=== PATIENT | male | born 1970 | race Caucasian/White ===

== ENCOUNTER → 2020-05-20 17:01 | Outpatient (BNVA) | payer SELFPAY | PROVIDERS: Visit Provider Nurse Practitioner | DX: E11.65 Type 2 diabetes mellitus with hyperglycemia (principal); I10 Essential (primary) hypertension; Z79.899 Other long term (current) drug therapy | CPT/HCPCS: 80053; 83036 ==

== ENCOUNTER → 2020-08-11 00:01 | Outpatient (BNVA) | payer SELFPAY | PROVIDERS: Visit Provider Nurse Practitioner | DX: E11.65 Type 2 diabetes mellitus with hyperglycemia (principal); E78.5 Hyperlipidemia, unspecified; I10 Essential (primary) hypertension | CPT/HCPCS: 80053; 80061; 83036 ==

== ENCOUNTER → 2020-10-06 16:34 | Outpatient (BNVA) | payer OTHER, SELFPAY | PROVIDERS: Visit Provider Nurse Practitioner Family | DX: Z20.828 Contact with and (suspected) exposure to other viral communicable diseases (principal) | CPT/HCPCS: 87635 ==

== ENCOUNTER → 2020-12-04 08:34 | Outpatient (BNVA) | payer SELFPAY | PROVIDERS: PCP Nurse Practitioner; Visit Provider Nurse Practitioner | DX: E11.65 Type 2 diabetes mellitus with hyperglycemia (principal); E78.5 Hyperlipidemia, unspecified; I10 Essential (primary) hypertension | CPT/HCPCS: 80053; 83036; 85025 ==

== ENCOUNTER → 2021-07-21 10:56 | Outpatient (BNVA) | payer SELFPAY | PROVIDERS: PCP Nurse Practitioner; Visit Provider Dermatology | DX: Z01.89 Encounter for other specified special examinations (principal) ==

== ENCOUNTER → 2021-10-13 10:01 | Outpatient (BNVA) | payer SELFPAY | PROVIDERS: PCP Nurse Practitioner; Visit Provider Dermatology | DX: Z01.89 Encounter for other specified special examinations (principal) ==

== ENCOUNTER → 2022-04-13 10:05 | Outpatient (BNVA) | payer SELFPAY | PROVIDERS: PCP Nurse Practitioner; Visit Provider Dermatology | DX: Z01.89 Encounter for other specified special examinations (principal) | CPT/HCPCS: 83721 ==

== ENCOUNTER 2022-09-06 13:34 | Emergency (ER) | payer MEDICAID, SELFPAY ==
[2022-09-06 13:36] VITALS: BP 125/92; PULSE 90; RESP 18; TEMP 36.6; O2SAT 95; BMI 40.3
--- NOTE | 2022-09-06 14:05 | PC.PHAR ---
pt states he takes care of his own medications-pt states he was taking vitamin d3 otc states he cant remember the units but states he hasnt been taking for 3 weeks or a month
--- NOTE | 2022-09-06 14:08 | CTR_ITS ---
PROCEDURE INFORMATION: Exam: CT Abdomen And Pelvis With Contrast Exam date and time: 09/06/2022 2:17 PM Age: 52 years old Clinical indication: Pain and injury or trauma; Fall; Blunt; Generalized; Abdominal pain; Additional info: Abd pain/trauma TECHNIQUE: Imaging protocol: Computed tomography of the abdomen and pelvis with contrast. Radiation optimization: All CT scans at this facility use at least one of these dose optimization techniques: automated exposure control; mA and/or kV adjustment per patient size (includes targeted exams where dose is matched to clinical indication); or iterative reconstruction. Contrast material: OMNI 350; Contrast volume: 100 ml; Contrast route: INTRAVENOUS (IV); COMPARISON: No relevant prior studies available. RADIATION DOSE METRICS: Total DLP (mGy-cm): 1201.63 FINDINGS: Liver: Normal. No mass. Gallbladder and bile ducts: Normal. No calcified stones. No ductal dilation. Pancreas: Normal. No ductal dilation. Spleen: Normal. No splenomegaly. Adrenal glands: Normal. No mass. Kidneys and ureters: Multiple right renal simple cysts with the largest measuring > 1.0 cm . Left renal hypodensity measuring < 1.0 cm , too small to further characterize. Stomach and bowel: Mild colonic diverticulosis. Appendix: Normal appendix. Intraperitoneal space: Unremarkable. No free air. No significant fluid collection. Vasculature: Calcification of the abdominal aorta and/or iliac arteries consistent with atherosclerotic vessel disease. Lymph nodes: Unremarkable. No enlarged lymph nodes. Urinary bladder: Unremarkable as visualized. Reproductive: Nonspecific prostate calcifications. Bones/joints: Unremarkable. No acute fracture. Soft tissues: Unremarkable. CT/CT abdomen pelvis w con* [id number] IMPRESSION: No acute findings. COMMENTS: Consistent with the [employer]'s Incidental Findings Committee white paper (J Am Lindsey Radiol 2018): Any incidental renal lesion less than 1 cm or classified as too small to characterize, or any incidental cystic renal lesion characterized as simple-appearing, is likely benign. No follow-up imaging is recommended for these lesions per consensus recommendations based on imaging criteria.
[2022-09-06 14:12] LABS: Basophils % 0.4 %; Eosinophils # 0.2 10^3/uL (0.0-0.8); Eosinophils % 2.1 %; Hematocrit 40.3 % (42.0-52.0); Hemoglobin 13.2 g/dL (11.7-16.6); Lymphocytes % 20.8 %; Mean Corpuscular HGB Conc 32.8 g/dL (30.0-36.0); Mean Corpuscular Hemoglobin 29.5 pg (28.0-34.0); Mean Platelet Volume 10.2 fL (7.4-10.4); Monocytes # 0.6 10^3/uL (0.2-0.9); Neutrophils # 6.81 10^3/uL (1.8-7.7); Neutrophils % 70.1 %; Nucleated Red Blood Cells % 0 %; Platelet Count 223 10^3/cmm (130-400); Red Blood Count 4.48 10^6/uL (4.1-5.3); Red Cell Distribution Width 13.1 % (12.1-15.1); White Blood Count 9.7 10^3/uL (4.0-10.0)
--- NOTE | 2022-09-06 14:18 | W.ED.FALL ---
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 He has some bruising and tenderness there he denies striking his head or his neck is no other injury or pain he has not had any loss of consciousness no vomiting he is not on any anticoagulants. MD complaint: fall Onset (ago): minute(s) Fall from: standing Fall witnessed: yes, by bystander Place fall occurred: work Loss of consciousness: None Prolonged down time: no Symptoms prior to fall: none Context: tripped/slipped Location of injury: abdomen (Right lower flank) Associated symptoms-after fall: Reports abdominal pain; Denies chest pain, confusion, difficulty walking, headache(s), hematuria, lightheadedness, neck pain, numbness, short of breath, vertigo or weakness Review of Systems Const: Denies: fever(s), chills, body aches, change in appetite, fatigue or malaise ENMT: Denies: throat pain, ear or mastoid pain, nasal discharge or nasal congestion Card: Denies: chest pain or lightheadedness Resp: Denies: dyspnea, productive cough or non-productive cough GI: Reports: abdominal pain; Denies: nausea or vomiting : Denies: hematuria Musc: Denies: neck pain Skin/Breast: Denies: rash or pruritus Neuro: Denies: headache(s), difficulty walking, vertigo or confusion [facility] ED PFSH: Medical History (Updated 09/06/22 @ 14:59 by Gabo Braxton DO) Hyperlipidemia, unspecified Hypertension Obesity Type 2 diabetes mellitus with hyperglycemia Surgical History No history of previous surgery Family History Father Diabetes Other Heart disease Social History Smoking and tobacco status: never smoked Second hand smoke exposure: No Smoking risk assessment/counseling performed?: No Alcohol intake: current Alcohol intake frequency: holidays/special occasions only Desire information about alcohol rehabilitation?: No Counseling given: No Desire information about substance/drug rehabilitation?: No Counseling given: No Adopted: No Caregiver/support person: No Lives independently: Yes Household members: none Housing: House Marital status: Single Number of children: 0 Number of grandchildren: 0 service: No Current occupational status: employed Pets and animals: No History of recent travel: No Current gender identity: Male Physical Exam Const: COMMON NORMALS: no acute distress GENERAL APPEARANCE: cooperative and comfortable ORIENTATION/CONSCIOUSNESS: Yes awake, Yes oriented to person, Yes oriented to place and Yes oriented to time HENMT: COMMON NORMALS: normocephalic, atraumatic, hearing grossly normal bilaterally, external ears normal, EAC's normal, TM's normal bilaterally, Normal nasal mucous membranes and turbinates present, moist oral mucous membranes and oropharynx normal HEAD & SCALP: normocephalic and atraumatic NOSE: Normal nasal mucous membranes and turbinates present EXTERNAL EAR: Yes external ears normal EXTERNAL AUDITORY CANAL: EAC's normal TYMPANIC MEMBRANE: TM's normal bilaterally Eye: COMMON NORMALS: Equal, round and reactive pupils present, EOMs intact bilaterally, conjunctivae normal and no scleral icterus CONJUNCTIVA: Yes conjunctivae normal PUPIL: Yes Equal, round and reactive pupils present Neck/C-Spine: COMMON NORMALS: full ROM, no lymphadenopathy, supple and no JVD Resp: COMMON NORMALS: normal respiratory effort, No retractions, No use of accessory muscles and clear to auscultation bilaterally AUSCULTATION: clear to auscultation bilaterally Cardio: COMMON NORMALS: no JVD, regular rate, regular rhythm and No murmurs present (Cardio) RATE: regular rate RHYTHM: regular rhythm GI: COMMON NORMALS: No hepatosplenomegaly present AUSCULTATION: Yes normoactive bowel sounds PALPATION: Yes Tenderness to palpation present (GI) (Right lower flank), No Guarding due to palpation present (GI) and Yes No hepatosplenomegaly present : COMMON NORMALS: Yes no CVA tenderness BLADDER/KIDNEY EXAM: Yes no CVA tenderness Back/Pelvis: COMMON NORMALS: no CVA tenderness Extremity: COMMON NORMALS: normal to inspection, capillary refill normal, no clubbing, cyanosis or edema, no calf tenderness and no pedal edema Neuro: SENSORIUM/ORIENTATION: Yes oriented to person, Yes oriented to place and Yes oriented to time Skin: COMMON NORMALS: no rashes or lesions noted GENERAL SKIN EXAM: no rashes or lesions noted Course Vital Signs: Vital signs: Vital Signs Temperature 97.8 F 09/06/22 13:36 Pulse Rate 90 09/06/22 13:36 Respiratory Rate 18 09/06/22 13:36 Blood Pressure 125/92 09/06/22 13:36 Pulse Oximetry 95 09/06/22 13:36 Oxygen Delivery Me thod 09/06/22 13:36 MDM - Fall Medical Decision Making Labs and imaging reviewed with the patient no acute findings noted discharge patient home use diclofenac as needed apply cold to the area of injury as needed follow-up with primary care doctor any worsening problems. Medical Records I reviewed the patient's medical records. Lab Data I reviewed the patient's lab results. : 09/06/22 14:05 09/06/22 14:05 Radiology Impressions Abdomen/Pelvis CT 09/06/22 14:08 IMPRESSION: No acute findings. COMMENTS: Consistent with the [place]'s Incidental Findings Committee white paper (J Am Lindsey Radiol 2018): Any incidental renal lesion less than 1 cm or classified as too small to characterize, or any incidental cystic renal lesion characterized as simple-appearing, is likely benign. No follow-up imaging is recommended for these lesions per consensus recommendations based on imaging criteria. Laboratory Results WBC 9.7 10^3/uL (4.0-10.0) 09/06/22 14:05 RBC 4.48 10^6/uL (4.1-5.3) 09/06/22 14:05 Hgb 13.2 g/dL (11.7-16.6) 09/06/22 14:05 Hct 40.3 % (42.0-52.0) L 09/06/22 14:05 MCV 90.0 fl (80-94) 09/06/22 14:05 MCH 29.5 pg (28.0-34.0) 09/06/22 14:05 MCHC 32.8 g/dL (30.0-36.0) 09/06/22 14:05 RDW 13.1 % (12.1-15.1) 09/06/22 14:05 Plt Count 223 10^3/cmm (130-400) 09/06/22 14:05 MPV 10.2 fL (7.4-10.4) 09/06/22 14:05 Neut % (Auto) 70.1 % 09/06/22 14:05 Lymph % (Auto) 20.8 % 09/06/22 14:05 [place] % (Auto) 6.0 % 09/06/22 14:05 Eos % (Auto) 2.1 % 09/06/22 14:05 Baso % (Auto) 0.4 % 09/06/22 14:05 Neut # (Auto) 6.81 10^3/uL (1.8-7.7) 09/06/22 14:05 Lymph # (Auto) 2.0 10^3/uL (0.8-4.8) 09/06/22 14:05 [place] # (Auto) 0.6 10^3/uL (0.2-0.9) 09/06/22 14:05 Eos # (Auto) 0.2 10^3/uL (0.0-0.8) 09/06/22 14:05 Baso # (Auto) 0.0 10^3/uL (0.0-0.1) 09/06/22 14:05 Nucleated RBC % (auto) 0 % 09/06/22 14:05 Nucleated RBCs # 0.0 /100WBC 09/06/22 14:05 Sodium 139 mmol/L (136-145) 09/06/22 14:05 Potassium 3.3 mmol/L (3.5-5.1) L 09/06/22 14:05 Chloride 108 mmol/L (98-107) H 09/06/22 14:05 Carbon Dioxide 22 mmol/L (22-29) 09/06/22 14:05 Anion Gap 12.3 (5-19) 09/06/22 14:05 BUN 10 mg/dL (6-20) 09/06/22 14:05 Creatinine 0.6 mg/dL (0.7-1.2) L 09/06/22 14:05 GFR Calculation 140.9 mL/min (90-130) H 09/06/22 14:05 Glucose 111 mg/dL (65-115) 09/06/22 14:05 Calculated Osmolality 288 mOsm/kg (285-295) 09/06/22 14:05 Calcium 8.0 mg/dL (8.5-10.5) L 09/06/22 14:05 Total Bilirubin 0.4 mg/dL (0.15-1.2) 09/06/22 14:05 AST 27 U/L (0-40) 09/06/22 14:05 ALT 35 U/L (0-41) 09/06/22 14:05 Alkaline Phosphatase 63 U/L (40-130) 09/06/22 14:05 Total Protein 6.1 g/dL (6.6-8.7) L 09/06/22 14:05 Albumin 3.5 g/dL (3.5-5.2) 09/06/22 14:05 Globulin 2.6 g/dL (1.3-4.6) 09/06/22 14:05 Discharge Plan Discharge Patient Disposition: Home Clinical Impression: Fall, Acute flank pain Condition: Stable Prescriptions: New diclofenac sodium 75 mg tablet,delayed release (DR/EC) 75 mg PO Q12H PRN (Reason: pain) Qty: 20 0RF No Action (DME) pen needle, diabetic 33 gauge x 5/32 needle See Rx Instructions .ROUTE .MEDSUPPLY Qty: 100 5RF Rx Instructions: 1 time day metformin 500 mg tablet extended release 24 hr 1,000 mg PO BID Qty: 120 2RF Flonase 50 mcg/actuation [place],Suspension 2 spray INTRANASAL DAILY PRN (Reason: Allergy Symptoms) Rx Instructions: administer into each nostril lovastatin 10 mg tablet 10 mg PO QAM Cozaar 100 mg tablet 100 mg PO QAM Jardiance 10 mg tablet 10 mg PO QAM Rx Instructions: 340B Discharge Orders: Discharge ED (Routine); Ordered 09/06/22 Ordered By: Gabo Braxton Referrals: Sally Houston, [employer] REPRESENTATIVE-C [Primary Care Provider] - Discharge Diet: Usual diet Discharge Activity: Increase activity as tolerated Patient Instructions: Opioid Safety, Pain Management Coding Level of Care Code ED Application Penetration Tester for Malik Fwd Exam Comprehensive
[2022-09-06] MEDS: iohexol 350 mg/mL 500 mL Btl (per mL) IV (14:21)
[2022-09-06 14:39] LABS: Alanine Aminotransferase 35 U/L (0-41); Albumin Level 3.5 g/dL (3.5-5.2); Alkaline Phosphatase 63 U/L (40-130); Anion Gap 12.3 (5-19); Aspartate Amino Transferase 27 U/L (0-40); Blood Urea Nitrogen 10 mg/dL (6-20); Carbon Dioxide 22 mmol/L (22-29); Chloride 108 mmol/L (98-107); Globulin 2.6 g/dL (1.3-4.6); Glomerular Filtration Rate 140.9 mL/min (90-130); Glucose 111 mg/dL (65-115); Osmolality Calculated 288 mOsm/kg (285-295); Potassium 3.3 mmol/L (3.5-5.1); Sodium 139 mmol/L (136-145); Total Bilirubin 0.4 mg/dL (0.15-1.2); Total Protein 6.1 g/dL (6.6-8.7)
[2022-09-06 15:00] VITALS: BP 120/89; PULSE 90; RESP 14; O2SAT 97
== END 2022-09-06 15:10 | disposition home or self-care (01) ==
PROVIDERS: Emergency Provider Family Medicine; PCP Nurse Practitioner
DX: R10.9 Unspecified abdominal pain (principal); S39.91XA Unspecified injury of abdomen, initial encounter; W13.3XXA Fall through floor, initial encounter
CPT/HCPCS: 74177; 80053; 85025; 99285; Q9967

== ENCOUNTER 2023-02-21 14:11 | Emergency (ER) | payer MEDICAID, SELFPAY ==
--- NOTE | 2023-02-21 14:26 | ECG_ITS ---
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 Measurements Intervals [place] Rate: 116 P: 46 MI: 160 QRS: 88 QRSD: 93 T: 32 QT: 338 QTc: 470 Interpretive Statements SINUS TACHYCARDIA No previous ECG available for comparison Electronically Signed On 02-22-2023 10:11:36 CDT by Maynor Carrera M.D. [email or web address]/store/[id number] f
--- NOTE | 2023-02-21 14:29 | XR_ITS ---
WS: [id number] Exam: XR chest 1V portable [id number] Date/Time of Exam: 02/21/2023 2:31 PM Reason For Exam: cp No priors. The lungs are clear and fully expanded. Normal cardiomediastinal silhouette. Bony structures are inta ct. Monitoring leads superimpose the chest. XR/XR chest 1V portable [id number] IMPRESSION: 1. No acute cardiopulmonary finding.
[2023-02-21 14:47] VITALS: BP 110/87; PULSE 115; RESP 18; TEMP 37.3; O2SAT 96
--- NOTE | 2023-02-21 14:51 | PC.NURSE ---
PT PLACED ON CONTINUOUS SPO2, NIBP, AND CM.
--- NOTE | 2023-02-21 14:57 | CT_ITS ---
WS: [id number] CT HEAD TECHNIQUE: Noncontrast CT of the head obtained from the skullbase to the vertex. CLINICAL INFORMATION: dizziness COMPARISON: None. DLP: 1215.[address] scans at [facility] use at least one of these dose optimization techniques: automated e xposure control; mA and/or kV adjustment per patient size (includes targeted exams where dose is matc hed to clinical indication); or iterative reconstruction. FINDINGS: No evidence of intracranial hemorrhage or mass effect. Ventricular system and basal cisterns are yang nt. Mild small vessel changes with mild parenchymal volume loss. No extra-axial fluid collections. No evidence of mass or mass effect. Paranasal sinuses and mastoid air cells are well aerated. .Normal visualized soft tissues. CT/CT head wo con* [id number] IMPRESSION: 1. No evidence of intracranial hemorrhage or mass effect. 2. Mild small vessel changes. Mild parenchymal volume loss. 3. No acute intracranial findings.
[2023-02-21 15:11] LABS: Basophils # 0.1 10^3/uL (0.0-0.1); Basophils % 0.5 %; Eosinophils # 0.1 10^3/uL (0.0-0.8); Eosinophils % 0.7 %; Hematocrit 45.7 % (42.0-52.0); Hemoglobin 15.4 g/dL (11.7-16.6); Lymphocytes # 1.9 10^3/uL (0.8-4.8); Lymphocytes % 14.5 %; Mean Corpuscular HGB Conc 33.7 g/dL (30.0-36.0); Mean Corpuscular Hemoglobin 29.8 pg (28.0-34.0); Mean Corpuscular Volume 88.4 fl (80-94); Mean Platelet Volume 9.7 fL (7.4-10.4); Monocytes # 0.7 10^3/uL (0.2-0.9); Monocytes % 5.2 %; Neutrophils % 77.9 %; Nucleated Red Blood Cells % 0 %; Platelet Count 345 10^3/cmm (130-400); Red Blood Count 5.17 10^6/uL (4.1-5.3); Red Cell Distribution Width 13.1 % (12.1-15.1)
--- NOTE | 2023-02-21 15:26 | ED_ITS ---
HPI - Chest Pain General: Chief Complaint: Chest Pain Stated Complaint: CHEST TIGHTNESS RADIATING TO R ARM Time Seen by Provider: 02/21/23 14:17 Source: patient History of Present Illness: 52-year-old male with a history of hypertension but no prior history of coronary disease or other heart disease. He is a dedicated truck driver. He began to get lightheaded while standing in a business in [place] earlier in the afternoon. He thought his sugar was getting low, and ate a couple of cookies which seem to improve his symptoms transiently. Following this, he began to develop some tightness in his chest, tingling and numbness in his extremities and continued lightheadedness. He had transient problems with language, and could answer questions with 1-2 word answers. He felt like he was having trouble concentrating. This seemed to persist for quite some time. Symptoms are improved now. He still has some paresthesias to all extremities. His chest is mildly tight MD complaint: chest pain Pertinent past history: other Onset (ago): hour(s) Timing of current episode: constant and now resolved (nearly) Pain location: substernal Pain radiation: none Quality: tightness and aching Relieving factors: nothing Exacerbating factors: nothing Associated symptoms: Reports diaphoresis, dyspnea and nausea; Deny abdominal pain, fever(s), leg edema, syncope or vomiting Treatment prior to arrival: none Review of Systems Const: Reports: diaphoresis; Denies: fever(s) Eyes: Reports: change in vision (Transient blurriness) ENMT: Denies: throat pain Card: Reports: chest pain; Denies: irregular heart rhythm or syncope Resp: Reports: dyspnea GI: Reports: nausea; Denies: abdominal pain or vomiting Neuro: Reports: dizziness and confusion (Potentially); Denies: headache(s) [facility] ED PFSH: Medical History (Updated 02/21/23 @ 18:10 by Rahul Cartagena DO) Hyperlipidemia, unspecified Hypertension Obesity Type 2 diabetes mellitus with hyperglycemia Surgical History No history of previous surgery Family History Father Diabetes Other Heart disease Social History Smoking and tobacco status: never smoked Second hand smoke exposure: No Smoking risk assessment/counseling performed?: No Alcohol intake: current Alcohol intake frequency: holidays/special occasions only Desire information about alcohol rehabilitation?: No Counseling given: No Substance/Drug Use: never Desire information about substance/drug rehabilitation?: No Counseling given: No Adopted: No Caregiver/support person: No Lives independently: Yes Household members: none Housing: House Marital status: Single Number of children: 0 Number of grandchildren: 0 service: No Current occupational status: employed Pets and animals: No Do you think of yourself as: Straight/Heterosexual Current gender identity: Male Physical Exam Const: COMMON NORMALS: no acute distress GENERAL APPEARANCE: cooperative; not ill appearing and not frail appearing HENMT: COMMON NORMALS: normocephalic, atraumatic and Normal external nose p resent HEAD & SCALP: normocephalic and atraumatic FACE & SINUS: normal facial exam and face symmetric NOSE: Normal external nose present Eye: COMMON NORMALS: Equal, round and reactive pupils present and EOMs intact bilaterally PUPIL: Yes Equal, round and reactive pupils present Neck/C-Spine: GENERAL: Yes trachea midline Chest: CHEST: Yes Symmetrical chest wall rise Resp: COMMON NORMALS: normal respiratory effort, No retractions, No use of accessory muscles and clear to auscultation bilaterally AUSCULTATION: clear to auscultation bilaterally Cardio: COMMON NORMALS: regular rhythm RATE: tachycardic RHYTHM: regular rhythm GI: COMMON NORMALS: Normal to inspection, nondistended, normoactive bowel sounds present Extremity: COMMON NORMALS: no pedal edema Neuro: DORINA COMA SCALE: document GCS findings [place] coma scale eye opening: Spontaneous [place] coma scale verbal response: Orientated [place] coma scale motor response: Obey commands [place] coma scale total score: 15 SENSORY EXAM: Yes extremities (intact) Psych: COMMON NORMALS: speech normal SPEECH: Yes normal speech Skin: COMMON NORMALS: no rashes or lesions noted GENERAL SKIN EXAM: no rashes or lesions noted Course Vital Signs: Vital signs: Vital Signs Temperature 99.1 F 02/21/23 14:47 Pulse Rate 84 02/21/23 19:15 Respiratory Rate 20 H 02/21/23 19:15 Blood Pressure 118/66 02/21/23 19:15 Pulse Oximetry 97 02/21/23 19:15 Oxygen Delivery Me thod Room Air 02/21/23 14:47 MDM - Chest Pain Medical Decision Making Patient is feeling improved after IV fluids, and rest. His NIH stroke scale is a negative. He was mildly tachycardic initially, but heart rate has returned to normal after one liter. EKG initially showed sinus tachycardia with no acute St change. white blood cell count is 13. Bicarbonate level is 21. BMP is otherwise not remarkable. Chest X-ray is negative. Head CT is non acute. TSH is normal. delta troponin is normal. Give an improvement in his symptoms, and negative workout both for cardiac ideology and stroke, the patient will be allowed at home. Close outpatient follow up. Further outpatient workup may be needed. He was encouraged to rest for 48 hours, and to not drive a truck until cleared by his doctor. Lab Data 02/21/23 14:43 02/21/23 14:43 Radiology Impressions Chest X-Ray 02/21/23 14:29 IMPRESSION: 1. No acute cardiopulmonary finding. Head CT 02/21/23 14:57 IMPRESSION: 1. No evidence of intracranial hemorrhage or mass effect. 2. Mild small vessel changes. Mild parenchymal volume loss. 3. No acute intracranial findings. Laboratory Results WBC 13.0 10^3/uL (4.0-10.0) H 02/21/23 14:43 RBC 5.17 10^6/uL (4.1-5.3) 02/21/23 14:43 Hgb 15.4 g/dL (11.7-16.6) 02/21/23 14:43 Hct 45.7 % (42.0-52.0) 02/21/23 14:43 MCV 88.4 fl (80-94) 02/21/23 14:43 MCH 29.8 pg (28.0-34.0) 02/21/23 14:43 MCHC 33.7 g/dL (30.0-36.0) 02/21/23 14:43 RDW 13.1 % (12.1-15.1) 02/21/23 14:43 Plt Count 345 10^3/cmm (130-400) 02/21/23 14:43 MPV 9.7 fL (7.4-10.4) 02/21/23 14:43 Neut % (Auto) 77.9 % 02/21/23 14:43 Lymph % (Auto) 14.5 % 02/21/23 14:43 [place] % (Auto) 5.2 % 02/21/23 14:43 Eos % (Auto) 0.7 % 02/21/23 14:43 Baso % (Auto) 0.5 % 02/21/23 14:43 Neut # (Auto) 10.10 10^3/uL (1.8-7.7) H 02/21/23 14:43 Lymph # (Auto) 1.9 10^3/uL (0.8-4.8) 02/21/23 14:43 [place] # (Auto) 0.7 10^3/uL (0.2-0.9) 02/21/23 14:43 Eos # (Auto) 0.1 10^3/uL (0.0-0.8) 02/21/23 14:43 Baso # (Auto) 0.1 10^3/uL (0.0-0.1) 02/21/23 14:43 Nucleated RBC % (auto) 0 % 02/21/23 14:43 Nucleated RBCs # 0.0 /100WBC 02/21/23 14:43 D-Dimer 0.35 ug/mIFEU (0-0.59) 02/21/23 14:43 Sodium 136 mmol/L (136-145) 02/21/23 14:43 Potassium 3.6 mmol/L (3.5-5.1) 02/21/23 14:43 Chloride 101 mmol/L (98-107) 02/21/23 14:43 Carbon Dioxide 21 mmol/L (22-29) L 02/21/23 14:43 Anion Gap 17.6 (5-19) 02/21/23 14:43 BUN 12 mg/dL (6-20) 02/21/23 14:43 Creatinine 0.7 mg/dL (0.7-1.2) 02/21/23 14:43 GFR Calculation 118.0 mL/min (90-130) 02/21/23 14:43 Glucose 192 mg/dL (65-115) H 02/21/23 14:43 Calculated Osmolality 287 mOsm/kg (285-295) 02/21/23 14:43 Calcium 8.8 mg/dL (8.5-10.5) 02/21/23 14:43 Total Bilirubin 0.3 mg/dL (0.15-1.2) 02/21/23 14:43 AST 10 U/L (0-40) 02/21/23 14:43 ALT 21 U/L (0-41) 02/21/23 14:43 Alkaline Phosphatase 67 U/L (40-130) 02/21/23 14:43 Troponin T Baseline 11 ng/L (0-15) 02/21/23 14:43 Troponin T 120 Minute 10.58 ng/L (0-15) 02/21/23 16:43 Delta Troponin T -0.42 ABS# (0-10) L 02/21/23 16:43 NT-Pro-B Natriuret Pep 50 pg/mL (0-125) 02/21/23 14:43 Total Protein 7.1 g/dL (6.6-8.7) 02/21/23 14:43 Albumin 4.1 g/dL (3.5-5.2) 02/21/23 14:43 Globulin 3.0 g/dL (1.3-4.6) 02/21/23 14:43 TSH 1.25 uIU/mL (0.27-4.20) 02/21/23 14:43 Discharge Plan Discharge Patient Disposition: Home Clinical Impression: Chest pain Condition: Stable Prescriptions: No Action Jardiance 10 mg tablet 10 mg PO QAM Qty: 90 1RF Rx Instructions: 340B Cozaar 100 mg tablet 100 mg PO QAM Qty: 90 1RF metformin 500 mg tablet extended release 24 hr 1,000 mg PO BID Qty: 360 1RF (DME) pen needle, diabetic 33 gauge x 5/32 needle See Rx Instructions .ROUTE .MEDSUPPLY Qty: 100 5RF Rx Instructions: 1 time day fluticasone propionate [Flonase] 50 mcg/actuation [place],Suspension 2 spray INTRANASAL DAILY PRN (Reason: Allergy Symptoms) Rx Instructions: administer into each nostril lovastatin 20 mg tablet 20 mg PO QAM Discharge Orders: Discharge ED (Routine); Ordered 02/21/23 Ordered By: Rahul Cartagena Referrals: Sally Houston, [facility] CUTTER-C [Primary Care Provider] - 1-3 days Patient Instructions: Chest Pain (ED), Near Syncope (ED) Activity Restrictions/Additional Instructions: Return for worsening mental status, weakness or language problems, worsening chest discomfort, any other concerning symptoms. You should rest for the next 48 hours. See your doctor this week. Further outpatient testing may be needed. 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
[2023-02-21 15:31] LABS: D Dimer 0.35 ug/mIFEU (0-0.59)
[2023-02-21] MEDS: sodium chloride 0.9% 1,000 ML 999 ML IV (15:35)
[2023-02-21 15:38] LABS: Troponin(5th) Baseline 11 ng/L (0-15)
[2023-02-21 15:45] LABS: Alanine Aminotransferase 21 U/L (0-41); Albumin Level 4.1 g/dL (3.5-5.2); Alkaline Phosphatase 67 U/L (40-130); Anion Gap 17.6 (5-19); Aspartate Amino Transferase 10 U/L (0-40); Blood Urea Nitrogen 12 mg/dL (6-20); Calcium 8.8 mg/dL (8.5-10.5); Carbon Dioxide 21 mmol/L (22-29); Chloride 101 mmol/L (98-107); Glucose 192 mg/dL (65-115); NT Pro B Type Natriuretic Pept 50 pg/mL (0-125); Osmolality Calculated 287 mOsm/kg (285-295); Potassium 3.6 mmol/L (3.5-5.1); Sodium 136 mmol/L (136-145); Thyroid Stimulating Hormone 1.25 uIU/mL (0.27-4.20); Total Bilirubin 0.3 mg/dL (0.15-1.2); Total Protein 7.1 g/dL (6.6-8.7)
--- NOTE | 2023-02-21 16:29 | ECG_ITS ---
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 Measurements Intervals [place] Rate: 93 P: 47 ND: 168 QRS: 66 QRSD: 94 T: 29 QT: 351 QTc: 438 Interpretive Statements SINUS RHYTHM Compared to ECG 02/21/2023 14:26:20 Sinus tachycardia no longer present Electronically Signed On 02-22-2023 10:11:53 CDT by Maynor Carrera M.D. [email or web address] medical [email or web address] memorial hospitalviaCycle/store/OM/[id number]
[2023-02-21 17:38] LABS: Troponin 5 2HR 10.58 ng/L (0-15)
[2023-02-21 17:41] LABS: Troponin 5 2HR Delta -0.42 ABS# (0-10)
--- NOTE | 2023-02-21 18:57 | PC.NURSE ---
Received report from Faheem DRAPER. Pt lying in bed, does not appear to be in distress and denies pain. Pt denies needs at this time.
--- NOTE | 2023-02-21 19:02 | PC.NURSE ---
REPORT GIVEN TO MARLENY DRAPER ASSUMED CARE.
[2023-02-21 19:15] VITALS: BP 118/66; PULSE 84; RESP 20; O2SAT 97
== END 2023-02-21 19:17 | disposition home or self-care (01) ==
PROVIDERS: Emergency Provider Emergency Medicine; PCP Nurse Practitioner
DX: R07.9 Chest pain, unspecified (principal); Z79.84 Long term (current) use of oral hypoglycemic drugs; E78.5 Hyperlipidemia, unspecified; I10 Essential (primary) hypertension; E11.9 Type 2 diabetes mellitus without complications
CPT/HCPCS: 36415; 70450; 71045; 80053; 83880; 84443; 84484; 85025; 85378; 93005; 96360; 99285; J7030

== ENCOUNTER → 2023-02-23 11:34 | Outpatient (BNVA) | payer MEDICAID, SELFPAY | PROVIDERS: PCP Nurse Practitioner; Visit Provider Nurse Practitioner | DX: I25.10 Atherosclerotic heart disease of native coronary artery without angina pectoris (principal); E78.5 Hyperlipidemia, unspecified | CPT/HCPCS: 80061; 83036 ==

== ENCOUNTER 2023-04-25 12:14 | Outpatient (CLI) | payer MEDICAID, SELFPAY ==
[2023-04-25 12:18] VITALS: BMI 41.6
--- NOTE | 2023-04-25 12:19 | ECG_ITS ---
[facility] Test Date: 2023-04-25 Pat Name: Milan Perdomo Department: Room: Gender: Male Probation Worker: Alicia Farnsworth : 1970 Requested By: Milan Goodson Order Number: [id number] Moran MD: Maynor Carrera M.D. Interpretive Statements NAME OF STUDY: TREADMILL STRESS TEST INDICATION: [Chest Pain, ] EXERCISE DATA: The patient was exercised by Toy protocol. Baseline heart rate was 105 beats per minute. Baseline blood pressure was 137/102 millimeters of mercury. Target heart rate was 142 beats per minute. Maximum heart rate achieved was 165 which was 116% of the target heart rate. Maximum blood pressure was 203/115 millimeters of mercury. Total exercise time was 6 minutes. Maximum METs achieved was 7. The reason for ending the test was maximal effort achieved. The patient complained of shortness of breath during the stress test, which then resolved at the end of the test. ELECTROCARDIOGRAM: BASELINE: Showed sinus rhythm, normal axis, no significant ST-T changes at the baseline noted. [] EXERCISE: At the peak exercise level, [] No significant ST-T changes suggestive of ischemia noted. [] RECOVERY: During the recovery period, heart rate dropped appropriately. No significant ST-T changes in the recovery suggestive of ischemia noted. [] CONCLUSION: 1. Exercise capacity fair. 2. Heart rate response was appropriate 3. Blood pressure response was hypertensive 4. Symptoms not suggestive of ischemia. 5. Stress test does not show evidence of ischemia Electronically Signed On 04-30-2023 14:54:35 CDT by Maynor Carrera M.[email or web address]
[2023-04-25 13:13] VITALS: BP 138/78; PULSE 111
== END 2023-04-25 12:15 | disposition home or self-care (01) ==
LOC: CDL 12:14
PROVIDERS: PCP Nurse Practitioner; Visit Provider Internal Medicine Cardiovascular Disease
DX: R07.9 Chest pain, unspecified (principal)
CPT/HCPCS: 93017

== ENCOUNTER → 2023-05-18 12:09 | Outpatient (BNVA) | payer MEDICAID, SELFPAY | PROVIDERS: PCP Nurse Practitioner; Visit Provider Nurse Practitioner | DX: E11.65 Type 2 diabetes mellitus with hyperglycemia (principal) | CPT/HCPCS: 80053; 80061; 81000; 83036 ==

== ENCOUNTER → 2023-11-02 11:38 | Outpatient (BNVA) | payer MEDICAID, SELFPAY | PROVIDERS: PCP Nurse Practitioner; Visit Provider Nurse Practitioner | DX: E11.9 Type 2 diabetes mellitus without complications (principal); I10 Essential (primary) hypertension; J06.9 Acute upper respiratory infection, unspecified | CPT/HCPCS: 80053; 80061; 81000; 83036 ==

== ENCOUNTER → 2024-06-13 11:58 | Outpatient (BNVA) | payer MEDICAID, SELFPAY | PROVIDERS: PCP Nurse Practitioner; Visit Provider Nurse Practitioner | DX: E11.9 Type 2 diabetes mellitus without complications (principal) | CPT/HCPCS: 80053; 80061; 81000; 82607; 83036 ==

== ENCOUNTER → 2024-11-28 11:56 | Outpatient (BNVA) | payer MEDICAID, SELFPAY | PROVIDERS: PCP Nurse Practitioner; Visit Provider Nurse Practitioner | DX: E11.9 Type 2 diabetes mellitus without complications (principal) | CPT/HCPCS: 80053; 80061; 81000; 82607; 83036 ==

== ENCOUNTER → 2025-04-30 14:24 | Outpatient (BNVA) | payer MEDICAID, SELFPAY | PROVIDERS: PCP Nurse Practitioner; Visit Provider Nurse Practitioner | DX: E11.65 Type 2 diabetes mellitus with hyperglycemia (principal); I10 Essential (primary) hypertension; E78.2 Mixed hyperlipidemia; I25.10 Atherosclerotic heart disease of native coronary artery without angina pectoris | CPT/HCPCS: 80053; 80061; 83036 ==

== ENCOUNTER → 2025-08-15 12:17 | Outpatient (BNVA) | payer MEDICAID, SELFPAY | PROVIDERS: PCP Nurse Practitioner; Visit Provider Nurse Practitioner | DX: E11.65 Type 2 diabetes mellitus with hyperglycemia (principal) | CPT/HCPCS: 80053; 83036 ==